=== PATIENT | male | born 1945 | race Caucasian/White ===

== ENCOUNTER 2020-10-08 14:19 | Inpatient (IN) | payer MEDICARE ==
[~2020-10-08] VITALS: Ht 182.8 cm; Wt 98.4 kg
[2020-10-08 07:30] VITALS: BP 138/80
[2020-10-08 14:57] LABS: BASO # 0.1 10*3/uL (0.0-0.1); BASO % 0.6 % (0.0-1.0); EOS % 0.2 % (1.0-4.0); HEMATOCRIT 36.2 % (42.0-52.0); LYMPH # 0.8 10*3/uL (1.3-4.4); LYMPH % 6.4 % (27.0-41.0); MEAN CELL VOLUME 78.7 fl (80.0-94.0); MEAN CORPUSCULAR HGB 21.7 pg (27.0-31.0); MEAN CORPUSCULAR HGB CONC 27.6 g/dl (33.0-37.0); MEAN PLATELET VOLUME 8.6 fl (9.6-12.3); MONO # 0.8 10*3/uL (0.1-1.0); NEUT # 10.1 10*3/uL (2.3-7.9); NEUT % 85.4 % (47.0-73.0); PLATELET COUNT AUTOMATED 548 10*3/uL (130-400); RED CELL DISTRI WIDTH 20.3 % (0-14.5); WHITE BLOOD COUNT 11.8 10*3/uL (4.8-10.8)
[2020-10-08 15:13] LABS: ACT PARTIAL THROMBO TIME 33.6 SECONDS (20.0-32.1); INTERNATIONAL NORM RATIO 1.3 (2.0-3.5)
[2020-10-08 15:18] VITALS: BP 143/85
[2020-10-08 15:22] LABS: BILIRUBIN Negative (Negative); BLOOD Negative (Negative); CLARITY Clear (Clear); COLOR Yellow (Yellow); GLUCOSE 3+ (Negative); KETONE Negative (Negative); LEUKO ESTERASE Negative (Negative); NITRITE Negative (Negative); SPECIFIC GRAVITY 1.015 (1.001-1.030)
[2020-10-08 15:31] LABS: ALBUMIN 3.4 gm/dl (3.1-4.5); ALKALINE PHOSPHATASE 171 U/L (45-117); BUN 16 mg/dl (7-24); CHLORIDE 108 mmol/L (98-107); CREATININE 0.81 mg/dL (0.70-1.30); LIPASE 249 U/L (73-393); POTASSIUM 4.3 mmol/L (3.5-5.1); SGOT/AST 12 IU/L (3-35); SGPT/ALT 23 U/L (12-78); SODIUM 142 mmol/L (136-145); TOTAL PROTEIN 7.2 gm/dL (6.4-8.2)
[2020-10-08 15:37] LABS: TROPONIN I < 0.015 ng/ml (<0.045)
[2020-10-08 15:49] LABS: YEAST TRACE
[2020-10-08 16:00] VITALS: BP 149/73
--- NOTE | 2020-10-08 16:09 | NUR ---
SCABS NOTED BILATERALLY TO UPPER EXTREMITIES AND LOWER LEFT EXTREMITY. NO OPEN WOUNDS. NO SEEPING. BILATERAL LOWER EDEMA ALSO NOTED AT THIS TIME. PT DENIES WOUNDS TO BUTTOCKS AREA.
[2020-10-08 17:48] LABS: ABG BASE EXCESS 1.1 mmol/L (-2.0-2.0); ARTERIAL BLOOD GAS PH 7.39 (7.35-7.45)
--- NOTE | 2020-10-08 17:55 | NUR ---
THIS RN CONTACTED DR GARCIA TO VERIFY THAT LASIX IS TO BE GIVEN. DR GARCIA VERIFIED THAT HE WOULD LIKE MEDICATION TO BE GIVEN. BP CURRENTLY 144/81.
[2020-10-08 18:36] VITALS: BP 148/85
[2020-10-08] MEDS ORDERED: AMLODIPINE BESY10 MG PO (18:42)
[2020-10-08] MEDS ORDERED: ELIQUIS5 M1 PO (18:42)
[2020-10-08] MEDS ORDERED: GLIPIZIDE10 M2 PO (18:43)
[2020-10-08] MEDS ORDERED: METFORMIN HYDR500 MG PO (18:43)
[2020-10-08] MEDS ORDERED: ATORVASTATIN CA20 M1 PO (18:45)
[2020-10-08] MEDS ORDERED: FUROSEMIDE20 M1 PO (18:45)
[2020-10-08] MEDS ORDERED: LOSARTAN POTAS100 M1 PO (18:46)
[2020-10-08] MEDS ORDERED: JARDIANCE25 MG PO (18:46)
[2020-10-08] MEDS ORDERED: ALLOPURINOL300 MG PO (18:47)
[2020-10-08] MEDS ORDERED: TRADJENTA5 M1 PO (18:47)
[2020-10-08] MEDS ORDERED: SALMON OIL 1,01 EACH PO (18:48)
[2020-10-08] MEDS ORDERED: OCUVITE EYE +1 EACH PO (18:48)
[2020-10-08] MEDS ORDERED: ASPIR-TRIN325 MG PO (18:48)
--- NOTE | 2020-10-08 18:50 | NUR ---
CONSULT WITH LEONARDA MONTES ANSWERING SERVICE COMPLETE AT THIS TIME. MED REC ALSO COMPLETE AT THIS TIME.
--- NOTE | 2020-10-08 19:30 | NUR ---
NURSE TO NURSE REPORT GIVEN TO THIS RN.PT ON BIPAP AT THIS TIME.HEPLOCK IN PLACE.
--- NOTE | 2020-10-08 19:30 | NUR ---
NURSE TO NURSE REPORT GIVEN TO THIS RN.PT ON BIPAP AT THIS TIME.
[2020-10-08 20:10] VITALS: BP 140/82
[2020-10-08 20:32] VITALS: BP 141/85
--- NOTE | 2020-10-08 20:32 | NUR ---
PT LINENS CHANGED.VITALS REASSESSED.PT REMAINS ON BIPAP.
--- NOTE | 2020-10-08 22:31 | NUR ---
PT PLACED IN INPATIENT BED.
[2020-10-09] VITALS (12 sets, daily range): BP systolic 11–165; BP diastolic 64–93
--- NOTE | 2020-10-09 00:08 | NUR ---
PT RESTING IN BED.VITALS REASSESSED.CALL BELLIS WITHIN REACH.
--- NOTE | 2020-10-09 04:03 | NUR ---
PT RESTING IN BED WITH EYES CLOSED.PT REMAINS ON BIPAP WITH O2 SAT 97%.
[2020-10-09 05:58] LABS: ALBUMIN 3.1 gm/dl (3.1-4.5); ALKALINE PHOSPHATASE 155 U/L (45-117); BUN 14 mg/dl (7-24); CHLORIDE 108 mmol/L (98-107); CHOLESTEROL 96 mg/dL (<200); CREATININE 0.62 mg/dL (0.70-1.30); HDL CHOLESTEROL 46 mg/dl (40-60); LDL CHOLESTEROL 38 mg/dL (9-159); POTASSIUM 3.9 mmol/L (3.5-5.1); SGOT/AST 14 IU/L (3-35); SGPT/ALT 19 U/L (12-78); SODIUM 144 mmol/L (136-145); TOTAL PROTEIN 6.5 gm/dL (6.4-8.2); TRIGLYCERIDES 58 mg/dl (<150); VLDL CHOLESTEROL 12 mg/dL (6-40)
[2020-10-09 06:12] LABS: BASO # 0.1 10*3/uL (0.0-0.1); BASO % 0.8 % (0.0-1.0); EOS # 0.1 10*3/uL (0.0-0.4); EOS % 0.7 % (1.0-4.0); HEMATOCRIT 35.3 % (42.0-52.0); LYMPH # 0.8 10*3/uL (1.3-4.4); LYMPH % 9.5 % (27.0-41.0); MEAN CELL VOLUME 76.4 fl (80.0-94.0); MEAN CORPUSCULAR HGB CONC 27.5 g/dl (33.0-37.0); MEAN PLATELET VOLUME 9.3 fl (9.6-12.3); MONO # 0.8 10*3/uL (0.1-1.0); MONO % 8.8 % (3.0-9.0); NEUT # 7.1 10*3/uL (2.3-7.9); NEUT % 79.9 % (47.0-73.0); PLATELET COUNT AUTOMATED 536 10*3/uL (130-400); RED BLOOD COUNT 4.62 10*6/uL (4.50-5.90); RED CELL DISTRI WIDTH 20.8 % (0-14.5); WHITE BLOOD COUNT 8.8 10*3/uL (4.8-10.8)
[2020-10-09 06:20] LABS: ACT PARTIAL THROMBO TIME 33.2 SECONDS (20.0-32.1); INTERNATIONAL NORM RATIO 1.3 (2.0-3.5)
[2020-10-09 09:25] LABS: VITAMIN D, 25-HYDROXY 22.7 ng/mL (30-100)
--- NOTE | 2020-10-09 09:46 | NUR ---
OT NOTE Occupational therapy order received and chart reviewed. Per discussion with primary RN in the ED, patient is not appropriate for an OT evaluation at this time and is currently on the Bipap. Will check back at a later time for completion of an OT eval as appropriate. Thank you. Marbella Birch, OTR/L
--- NOTE | 2020-10-09 09:46 | NUR ---
PHYSICAL THERAPY Physical therapy evaluation order recieved and chart reviewed. Attempted to see patient in ED however per nursing patient is not medically appropriate at this time for evaluation. Will attempt to see patient at a later time once medically appropriate. thanks Caridad Josue PT DPT
--- NOTE | 2020-10-09 12:37 | NUR ---
PATIENT BIPAP HAS BEEN TURNED DOWN TO 40%. ALECIA RESP HAS PLACED PATIENT ONTO NASAL CANNULA AT THIS TIME THOUGH AT 5L. PATIENT TOLERATING WELL. PATIENT ALSO REQUESTING LUNCH TRAY.
--- NOTE | 2020-10-09 19:29 | NUR ---
NURSE TO NURSE REPORT GIVEN TO THIS RN
--- NOTE | 2020-10-09 20:05 | NUR ---
PATIENT CLEANED UP AND BED SHEETS CHANGED AT THIS TIME. WILL CONT TO MONITOR PATIENT. NO DISTRESS NOTED. CALL LIGHT WITHIN REACH.
[2020-10-10] VITALS (9 sets, daily range): BP systolic 120–150; BP diastolic 60–87
--- NOTE | 2020-10-10 05:21 | NUR ---
PATIENT IN BED AWAKE AND ALERT PLEASANTLY CONFUSED. NO DISTRESS NOTED. VSS. CONT TECH BRAZER TESTER IN PLACE. RESP EASY AND NONLABORED. CALL LIGHT WITHIN REACH. RN WILL CONT TO MONITOR
[2020-10-10 05:44] LABS: BUN 17 mg/dl (7-24); CHLORIDE 106 mmol/L (98-107); CREATININE 0.72 mg/dL (0.70-1.30); POTASSIUM 4.2 mmol/L (3.5-5.1); SODIUM 142 mmol/L (136-145)
--- NOTE | 2020-10-10 08:29 | NUR ---
SLEEPING IN BED SEMI FOWLERS, EASILY AROUSED. GIVEN BREAKFAST TRAY. PLEASANTLY CONFUSED.
--- NOTE | 2020-10-10 09:07 | NUR ---
RICKS CATH EMPTIED FOR 1000 CC CLEAR YELLOW URINE.
--- NOTE | 2020-10-10 11:10 | NUR ---
SLEEPING SOUNDLY, RESPS EASY. POX 96%
--- NOTE | 2020-10-10 15:36 | NUR ---
DRANK APPROX 1/[address] PREP, REFUSING TO DRINK ANY MORE AT THIS TIME.
--- NOTE | 2020-10-10 21:06 | NUR ---
PT GIVEN RESTORIL FOR INSOMNIA/RESTLESSNESS. WILL MONITOR FOR EFFECTIVENESS. CALL LIGHT IN REACH.
--- NOTE | 2020-10-10 22:06 | NUR ---
RESTORIL EFFECTIVE. PT SLEEPING IN BED AT THIS TIME.
[2020-10-11] VITALS: BP 108/85; BP 138/76
--- NOTE | 2020-10-11 | NUR ---
PT AWAKE AND ALERT. REORIENTED TO PLACE AND TIME. PT HAS NO S/S OF DISTRESS. RESPIRATIONS UNLABORED. WILL CONTINUE TO MONITOR. SAFETY MEASURES IN PLACE. CALL LIGHT IN REACH.
--- NOTE | 2020-10-11 01:07 | NUR ---
PT C/O PAIN TO NECK. MORPHINE GIVEN VIA IVP. WILL MONITOR FOR EFFECTIVENESS. CALL LIGHT IN REACH.
--- NOTE | 2020-10-11 01:40 | NUR ---
PT TAKES BIPAP OFF AND REFUSES TO WEAR IT AT THIS TIME. PT PLACED ON 4L NC. WILL ATTEMPT TO PLACE PT ON BIPAP AT A LATER TIME.
--- NOTE | 2020-10-11 02:07 | NUR ---
PT STATES THAT MORPHINE IS EFFECTIVE AT THIS TIME.
--- NOTE | 2020-10-11 02:21 | NUR ---
DR OWEN NOTIFIED THAT PT IS RESTLESS/AGITATED AND REFUSING TO WEAR BIPAP. PHYSICIAN ALSO NOTIFIED OF NEW SKIN TEAR ON TOP OF LEFT HAND. NEW ORDERS RECEIVED.
--- NOTE | 2020-10-11 02:46 | NUR ---
PT GIVEN 0.5 MG IVP ATIVAN FOR RESTLESSNESS/AGITATION. WILL MONITOR FOR EFFECTIVENESS. CALL LIGHT IN REACH.
--- NOTE | 2020-10-11 03:15 | NUR ---
PT PLACED ON BIPAP AT THIS TIME.
[2020-10-11 06:51] LABS: BASO # 0.1 10*3/uL (0.0-0.1); BASO % 0.5 % (0.0-1.0); EOS # 0.1 10*3/uL (0.0-0.4); EOS % 1.2 % (1.0-4.0); HEMATOCRIT 34.5 % (42.0-52.0); LYMPH # 1.3 10*3/uL (1.3-4.4); LYMPH % 11.9 % (27.0-41.0); MEAN CELL VOLUME 76.5 fl (80.0-94.0); MEAN CORPUSCULAR HGB 21.7 pg (27.0-31.0); MEAN CORPUSCULAR HGB CONC 28.4 g/dl (33.0-37.0); MEAN PLATELET VOLUME 9.3 fl (9.6-12.3); MONO # 1.4 10*3/uL (0.1-1.0); MONO % 13.2 % (3.0-9.0); NEUT # 7.7 10*3/uL (2.3-7.9); NEUT % 72.9 % (47.0-73.0); PLATELET COUNT AUTOMATED 523 10*3/uL (130-400); RED BLOOD COUNT 4.51 10*6/uL (4.50-5.90); RED CELL DISTRI WIDTH 20.6 % (0-14.5); WHITE BLOOD COUNT 10.5 10*3/uL (4.8-10.8)
[2020-10-11 07:26] LABS: ALBUMIN 2.8 gm/dl (3.1-4.5); ALKALINE PHOSPHATASE 136 U/L (45-117); BUN 20 mg/dl (7-24); CHLORIDE 107 mmol/L (98-107); CREATININE 0.78 mg/dL (0.70-1.30); POTASSIUM 4.1 mmol/L (3.5-5.1); SGOT/AST 6 IU/L (3-35); SGPT/ALT 16 U/L (12-78); SODIUM 144 mmol/L (136-145); TOTAL PROTEIN 6.2 gm/dL (6.4-8.2)
[2020-10-11 08:00] VITALS: BP 131/67
[2020-10-11 08:15] LABS: ABG BASE EXCESS 6.8 mmol/L (-2.0-2.0); ARTERIAL BLOOD GAS PH 7.414 (7.35-7.45)
[2020-10-11 09:27] VITALS: BP 131/67
--- NOTE | 2020-10-11 09:58 | NUR ---
PT BECOME AGITATED AND COMBATIVE. TRYING TO CLIMB FROM BED. PT THREW WATER PITCHER AND MISC ITEMS FROM BEDSIDE STAND TO FLOOR. NOTIFIED DR ATKINSON AND ORDER RECIEVED.
--- NOTE | 2020-10-11 10:47 | NUR ---
PATIENTS NOTES REPORTS CONFUSION. TELEMARKETING FUNDRAISER LEFT MESSAGE FOR PATIENTS DAUGHTER JAJA ASKING FOR A RETURN CALL. CASE MANAGEMENT TO FOLLOW.
--- NOTE | 2020-10-11 10:50 | NUR ---
DR CANTRELL ROUNDED AND SEEN PT. PT BECAME AGGRESSIVE AND COMBATIVE. STATING "I'M LEAVING".DR CANTRELL ATTEMPTED TO REORIENT PT.PT DISORIENTED. ATIVAN 0.5 MG GIVEN AT THIS TIME. PT ASSISTED BACK INTO BED WITHOUT DIFFICULTY. PLACED ON BIPAP 14/10 @35% FIO2. PT RESTING COMFORTABLY AT THIS TIME.PT PLACED ON CONTINUOUS PULSE OX. SPO2 96% ON BIPAP. BED ALARM INTACT.CALL LIGHT IN REACH.
[2020-10-11 12:00] VITALS: BP 90/60
--- NOTE | 2020-10-11 12:30 | NUR ---
UPDATED DAUGHTER JAJA, ON PLAN OF CARE WELL BEHAVIORS NOTED. PER DAUGHTER PT HAS HAD TO LIVE WITH THEM FOR LAST 6-8 MTHS DUE TO CHANGES IN MENTAL STATUS. PT HAS REQUIRED 24 HOUR SUPERVISION AND REPORTED MEMORY LOSS WELL INCREASED CONFUSION. SUPERVISDION REQUIRED PER PHYSICIAN'S RECOMMENDATIONS.
--- NOTE | 2020-10-11 12:51 | NUR ---
TRANSFER CONTROLLER RECEIVED CALL BACK FROM PATIENTS MARQUITA WILKINSON. SHE WAS UNABLE TO VERFY PASSWORD. TRANSFER CONTROLLER SPOKE WITH HER AND ASKED HER BASIC QUESTIONS. PER DAUGHTER SUN PATIENT HAS BEEN RESIDING WITH HER FOR ABOUT 6 MONTHS. THERE IS 1 STEP IN THE HOME. PATIENT USES A WALKER, BUT DOES HAVE A WHEEL CHAIR. NO OXYGEN AT HOME. PATIENT USES [facility] IN [place] ALONG WITH [facility]. TRANSFER CONTROLLER SPOKE WITH HER ABOUT SNF/HH/OPR. SHE IS UNDECIDED AT THIS TIME. PATIENT IS CONFUSED. SHE STATED SHE WANTED TO SPEAK WITH PATIENTS RN. TRANSFER CONTROLLER TRANSFER CALL TO [facility]. TRANSFER CONTROLLER EXPLAINED TO [facility] NO PASSWORD GIVEN.
--- NOTE | 2020-10-11 14:51 | NUR ---
NOTIFIED FLORA PAGE OF [facility] CONSULT.
[2020-10-11 16:00] VITALS: BP 121/71
[2020-10-11 20:00] VITALS: BP 140/79
--- NOTE | 2020-10-11 22:55 | NUR ---
PATIENT AT THIS TIME TAKEN OFF BIPAP TO TAKE MEDICATION. PATIENT ALERT TO PERSON, NOT PLACE OR TIME. VERY PLEASANT AND COOPERATIVE. REQUESTED SOMETHING TO DRINK AND TO BE OFF THE BIPAP FOR A WHILE. PATIENT STATES HE'S TIRED AND IS READY TO GO BACK TO SLEEP. CALL LIGHT WITHIN REACH, WILL MONITOR
[2020-10-12] VITALS: BP 143/84
--- NOTE | 2020-10-12 01:53 | NUR ---
PATIENT AT THIS TIME REQUESTING GRAPE JUICE AND VANILLA ICE CREAM. PATIENT PLEASANT AND COOPERATIVE. STILL CONFUSED. CALL LIGHT WTIHIN KIKI, WILL MONITOR
--- NOTE | 2020-10-12 04:29 | NUR ---
24 HR chart check completed.
[2020-10-12 06:37] LABS: BASO # 0.1 10*3/uL (0.0-0.1); BASO % 0.6 % (0.0-1.0); EOS # 0.2 10*3/uL (0.0-0.4); EOS % 1.9 % (1.0-4.0); HEMATOCRIT 36.1 % (42.0-52.0); LYMPH # 0.9 10*3/uL (1.3-4.4); LYMPH % 7.8 % (27.0-41.0); MEAN CELL VOLUME 76.6 fl (80.0-94.0); MEAN CORPUSCULAR HGB 21.7 pg (27.0-31.0); MEAN CORPUSCULAR HGB CONC 28.3 g/dl (33.0-37.0); MONO % 9.1 % (3.0-9.0); NEUT % 80.3 % (47.0-73.0); PLATELET COUNT AUTOMATED 542 10*3/uL (130-400); RED BLOOD COUNT 4.71 10*6/uL (4.50-5.90); RED CELL DISTRI WIDTH 20.5 % (0-14.5); WHITE BLOOD COUNT 11.1 10*3/uL (4.8-10.8)
[2020-10-12 07:10] LABS: ALBUMIN 2.7 gm/dl (3.1-4.5); ALKALINE PHOSPHATASE 137 U/L (45-117); BUN 17 mg/dl (7-24); CHLORIDE 106 mmol/L (98-107); CREATININE 0.63 mg/dL (0.70-1.30); SGOT/AST 10 IU/L (3-35); SGPT/ALT 13 U/L (12-78); SODIUM 146 mmol/L (136-145); TOTAL PROTEIN 6.2 gm/dL (6.4-8.2)
[2020-10-12 08:00] VITALS: BP 128/77
--- NOTE | 2020-10-12 11:40 | NUR ---
PHYSICAL THERAPY PT eval ordered 10/08/20 but per chart review and nursing today patient has been agitated and combative and is not appropriate for PT eval today. Will attempt at later date. thank you for referral gerald moser PT
[2020-10-12 12:00] VITALS: BP 117/46
--- NOTE | 2020-10-12 13:55 | NUR ---
NOTIFIED DR PRADHAN OF 6 BEAT RUN OF [place]. NO NEW ORDERS. PT ASYMPTOMATIC.
--- NOTE | 2020-10-12 14:45 | NUR ---
FLORA PAGE ROUNDED AND SPOKE TO PT VIA [employer].
--- NOTE | 2020-10-12 15:00 | NUR ---
IV started left wrist with #22 angiocath after 1 attempts. The IV site was prepped with Chloraprep. Heparin lock attached. Sterile dressing applied. Patient tolerated precedure well. Procedure performed according to [facility] policy & procedure. VALERIA EISENBERG
[2020-10-12 16:00] VITALS: BP 120/63
[2020-10-12 20:00] VITALS: BP 118/64
--- NOTE | 2020-10-12 20:51 | NUR ---
ASSUMED CARE OF PATIENT. PATIENT IS RESTING IN BED WITH EASY AND REGULAR RESPERS. ASSESSMENT IS COMPLETE WITH NO S/S OF DISTRESS NOTED AT THIS TIME. PATIENT C/O THIRST, MARYCRUZ YANELI PROVIDED. BED IS LOW, LOCKED, ALARMED, AND CALL LIGHT IS WITHIN REACH. WHITEBOARD UPDATED. SEE INTERVENTIONS.
--- NOTE | 2020-10-12 23:00 | NUR ---
PATIENT INCONTINENT LARGE BM. BED BATH GIVEN AT THIS TIME AND BED LINENS CHANGED. BED IS LOW, LOCKED, ALARMED, AND CALL LIGHT IS WITHIN REACH.
[2020-10-13] VITALS: BP 119/61
--- NOTE | 2020-10-13 02:51 | NUR ---
REFUSING TO WEAR BIPAP AT THIS TIME. CALL LIGHT IS WITHIN REACH.
--- NOTE | 2020-10-13 04:36 | NUR ---
PATIENT REMOVED TOWER HAND AND CONTINUOUS PULSE OX. REFUSING TO PUT BACK ON. CALL LIGHT IS WITHIN REACH. SAUTE CHEF CONTACTED.
--- NOTE | 2020-10-13 05:06 | NUR ---
CHART CHECK COMPLETE.
--- NOTE | 2020-10-13 07:55 | NUR ---
PT HAD REFUSED PULSEOX AND MOTIVATIONAL SPEAKER FOR PREVIOUS SHIFT, AT THIS TIME PT AGREEABLE TO WEARING PULSEOX AND MOTIVATIONAL SPEAKER, MONITORS APPLIED. PT STATES NO NEEDS AT THIS TIME. OXYGEN NC ON AT 6 LITERS, NO DISTRESS NOTED AT THIS TIME.
[2020-10-13 08:00] VITALS: BP 150/70
--- NOTE | 2020-10-13 09:21 | NUR ---
PT TOOK DINKEY DRIVER OFF, REFUSE TO PUT BACK ON AT THIS TIME.
--- NOTE | 2020-10-13 09:28 | NUR ---
NOAH RECEIVED CALL FROM PATIENTS DAUGHTER JAJA, SHE DOES NOT KNOW THE PASSWORD, SHE DID VERFY /ADDRESS. SHE WANTED TO KNOW IF SHE COULD VISIT THIS PATIENT. NOAH EXPLAINED WOULD SPEAK WITH IP AUSTRALIAN RULES FOOTBALLER. SHE REQUESTED TO SPEAK WITH PATIENTS RN. NOAH TRANSFERRED CALL TO KESHA CHRISTOPHER. NOAH EXPLAINED NO PASSWORD WAS GIVEN.
--- NOTE | 2020-10-13 10:36 | NUR ---
5TH FLOOR INP TICKER MAINTAINER BYRON GAVE PERMISSION FOR PATIENTS DAUGHTER JAJA DANIELS TO VISIT THIS PATIENT. DINING CAR CONDUCTOR SPOKE WITH DAUGHTER SHE IS AWARE AND STATED SHE WILL BE IN TO SEE HIM. DINING CAR CONDUCTOR CONTACTED [employer] AUDITOR SECURITY, THEY WILL MAKE A NOTE.
--- NOTE | 2020-10-13 11:49 | NUR ---
case management visits patient, discussed with him being weak and possibly needing to go to a short term prison for 5 days of reah and 24 hour care prior to returning home, patient was agreeable but appeared to be somewhat confused, asked permission to speak with daughter, patient gave permission, per social media intern, patient's daughter will be visiting patient sometime today. will talk with her then
--- NOTE | 2020-10-13 11:54 | NUR ---
Occupational Therapy evaluation completed on five with full evaluation to follow. Recommend occupational therapy per plan of care and SNF upon discharge. Thank you for this referral. Marbella Birch OTR/L
--- NOTE | 2020-10-13 11:56 | NUR ---
PHYSICAL THERAPY Physical Therapy evaluation completed on 5E with full evaluation to follow. Moderate complexity skilled PT evaluation per chart review and evaluation, [address]. Recommend physical therapy per plan of care and SNF upon discharge. Thank you for this referral. Jasmin Dunlap,PT,DPT
[2020-10-13 12:00] VITALS: BP 150/75
--- NOTE | 2020-10-13 13:50 | NUR ---
PT CONTINUES TO REFUSE INSPECTOR TESTER SORTER.
--- NOTE | 2020-10-13 15:00 | NUR ---
Monitor removed and place in yellow bin at nurses station. Order to make pt unmonitored.
[2020-10-13 16:00] VITALS: BP 116/67
--- NOTE | 2020-10-13 18:04 | NUR ---
Pt pulled up in bed. States that left knee is hurting. Pt states he has had problems with this knee for a while and moving him caused him pain. Medicated with tylenol per prn order.
--- NOTE | 2020-10-13 19:56 | NUR ---
CHART CHECK COMPLETE.
[2020-10-13 20:00] VITALS: BP 136/68
--- NOTE | 2020-10-13 21:04 | NUR ---
ASSUMED CARE OF PATIENT. PATIENT IS RESTING IN BED WITH EASY AND REGULAR RESPERS. ASSESSMENT IS COMPLETE WITH NO S/S OF DISTRESS OR C/O NOTED AT THIS TIME. BED IS LOW, LOCKED, ALARMED, AND CALL LIGHT IS WITHIN REACH. SEE INTERVENTIONS.
[2020-10-14] VITALS: BP 134/81
--- NOTE | 2020-10-14 | NUR ---
PATIENT CLIMBED OUT OF BED MULTIPLE TIMES STATING "I NEED TO GET MY TRUCK, I AM GOING HOME." REORIENTED PATIENT. PATIENT NOT RECEPTIVE OF REORIENTATION. PATIENT ASSISTED BACK TO BED. BED IS LOW, LOCKED, ALARMED, AND CALL LIGHT IS WITHIN REACH. PATIENT WILL NOT KEEP DRESSING TO HAND INTACT.
--- NOTE | 2020-10-14 00:03 | NUR ---
PATIENT REFUSING BIPAP
--- NOTE | 2020-10-14 02:00 | NUR ---
PATIENT IS VERY CONFUSED, TRYING TO LEAVE. STAFF IN PATIENT ROOM MULTIPLE TIMES FOR BED ALARM. PATIENT REDIRECTED AND IT SEEMS EFFECTIVE. BED IS LOW, LOCKED, ALARMED, AND CALL LIGHT IS WITHIN REACH.
--- NOTE | 2020-10-14 03:21 | NUR ---
PATIENT VERY CONFUSED. STAFF HAS BEEN DEALING WITH HIM ALL NIGHT ATTEMPTING TO GET OUT OF BED TO "LEAVE" AND ATTEMPTING TO PULL RICKS OUT. PT STATES HE IS GOING TO HIS TRUCK. PT VERY UNSTEADY AND ALMOST FALLING WITH MULTIPLE STAFF MEMBERS ASSISTING HIM. PT DOES NOT FOLLOW COMMANDS. PT ASSISTED UP TO BSC TO HAVE BM. PATIENT ATTEMPTED TO WIPE AFTER BM WITH HIS HAND. PT THEN PROCEEDED TO TOUCH FACE WITH BM COVERED HAND. STAFF CURRENTLY IN ROOM ATTEMPTING TO GET HIM CLEANED UP AND PUT IN ANDREA CHAIR SO THAT PT DOES NOT HARM HIMSELF OR FALL. NOTIFIED OF SITUATION. WILL REVIEW CHART AND PLACE ORDERS NEEDED. TO REVIEW CHART AND PLACE ORDERS.
--- NOTE | 2020-10-14 03:33 | NUR ---
0333 1 MG IV ATIVAN GIVEN PER ONE TIME ORDER FOR INCREASED CONFUSION/AGITATION. 0342 PO TYLENOL GIVEN PER PRN ORDER FOR C/O L LEG PAIN. WILL MONITOR EFFECTIVENESS. CALL LIGHT IN REACH.
--- NOTE | 2020-10-14 03:45 | NUR ---
PATIENT IN ANDREA-CHAIR AT THIS TIME WITH TRAY TABLE ON EATING ICE CREAM AND BLAIRE CRACKERS. CALL LIGHT IS WITHIN REACH.
--- NOTE | 2020-10-14 04:32 | NUR ---
EARLIER ATIVAN INEFFECTIVE. PT REMAINS AWAKE IN ANDREA CHAIR. PT HAS THROWN COFFEE, WATER, AND BLAIRE CRACKERS ON GROUND. PT STILL PULLING AT ANDREA CHAIR TRAY AND RICKS CATHETER. STAFF HAS ATTEMPTED TO REORIENT/EDUCATE PT MULTIPLE TIMES, BUT UNSUCCESSFUL. WILL CONTINUE TO MONITOR. BODY ALARM INTACT. CALL LIGHT IN REACH.
--- NOTE | 2020-10-14 05:33 | NUR ---
PATIENT ASSISTED BACK TO BED AROUND 0520 WITH ASSIST FROM ANOTHER RN. WHILE ASSISTING PATIENT BACK TO BED PATIENT BECAME COMBATIVE AND ATTEMPTED TO HIT STAFF. PATIENT IS IN BED. BED IS LOW, LOCKED, ALARMED, AND CALL LIGHT IS WITHIN REACH. PATIENT IS SLEEPING AT THIS TIME, RESPERS EASY AND REGULAR ON 6L O2 VIA NC.
[2020-10-14 08:00] VITALS: BP 148/81
--- NOTE | 2020-10-14 08:31 | NUR ---
MOLDER FEEDER REACHED OUT TO PATIENT DAUGHTER JAJA. SHE STATED THAT SHE IS UNSURE OF WHAT THIS PATIENTS DISCHARGE PLAN LOOKS LIKE. SHE IS WEIGHING THE OPTIONS OF SNF VS HH VS OPR. MOLDER FEEDER EXPLAINED BIPAP/OXGYEN REQUIREMENTS. PATIENT DOES NOT USE OXYGEN AT HOME. HE IS CURRENTLY ON 5L. PATIENT/DAUGHTER IS FROM [facility]. MOLDER FEEDER EXPLAINED [facility] IS NON COVID. PATIENTS DAUGHTER STATED THIS MIGHT BE AN OPTION IF BEDS WERE AVAIABLE. MOLDER FEEDER WILL SEND REFERRAL TO HAVE [facility] LOOK AT REFERRAL FAMILY IS UNDECIDED. TABLET COATER IS AWARE.
--- NOTE | 2020-10-14 09:11 | NUR ---
REFUSE LABORER FAXED REFERRAL FOR REVIEW TO [facility]. FAMILY IS STILL UNDECIDED. REFUSE LABORER SPOKE WITH 5TH FLR CNC SERVICE ENGINEER BYRON, SHE OKAY FOR DAUGHTER TO VISIT AGAIN TO DAY. REFUSE LABORER WILL NOTIFY HER.
--- NOTE | 2020-10-14 10:51 | NUR ---
OT NOTE Pt was seen this A.M. 1:1 for 20 minute OT session. Upon arrival pt was supine in bed with daughter just arriving to room for a visit. Pt identified by name and and had complaints of generalized weakness. Pt presented to therapy with continuous 6L-O2 via NC which he remained on throughout the entire session. Pt transferred supine to sit EOB with Isabel for assist with upper body. While sitting EOB requested for pt to adjust B socks due to them falling off and pt was unable to complete requiring maxA to complete. Sit to stand completed from bed level with modA X 2 and use of w/w for UE support. Challenged pt's static standing tolerance needed for increased I in self care tasks and functional transfers. Pt was able to tolerate aprox 60 seconds at a time before sitting due to fatigue. Functional mobility was then completed from the EOB to the bedside commode (aprox 5 feet) with modA X 2 and use of w/w. Pt required constant/max verbal and tactile prompts for correcting his posture and slowing down due to being very impulsive and presenting with little to no safety awareness. While turning onto the bedside commode pt was sitting premature resulting in maxA x 2 to correct. After a seated rest break sit to stand completed from bedside commode with modA X 2 and use of w/w followed by functional mobility back to the EOB with modA X 2. Pt continued to be very impulsive and present with poor safety awareness. Pt then transferred back into bed sit to supine with SBA. There he was left with call light in hand, daughter still at bedside, bed rails up, and bed alarm activated for safety. Continue with rec D/C plan to SNF. JASON Jesus
--- NOTE | 2020-10-14 11:28 | NUR ---
[facility] IS ABLE TO ACCEPT THIS PATIENT. PEDIATRIC SPEECH THERAPIST SPOKE WITH PATIENTS DAUGHTER VIA PHONE. SHE IS AWARE OF THEY ABLE TO ACCEPT, HOWEVER, SHE/FAMILY IS STILL UNDECIDED OF A DISCHARGE PLAN AT THIS TIME.
--- NOTE | 2020-10-14 11:45 | NUR ---
PHYSICAL THERAPY Patient presented to therapy in supine in bed with head of bed elevated and bed alarm on with patient on 6 liters of spO2 via nasal canula. Patient reports no pain. Patient seems mildy confused. Patient's daughter is present in room with patient for therapy session. Patient's RN is Margaret. Patient has catheter. Patient has no IVs infusing at this time. Patient performed supine > sitting on EOB with SBA. Patient required verbal cues for technique. Patient sat on EOB with SBA. Patient performed STS from EOB with MIN A X 2 and verbal cues for hand placement and technique. Patient ambulated across room to low chair with Wh Walker and CGA for 10' x 1 with 1 minor LOB that the patient corrected himself. Patient sat in low chair with verbal cues for putting hands back on armrests of chair and with CGA. Patient STS out of low chair with MOD A X 2. Patient ambulated 10' x 1 with Wh Walker and CGA to sitting on EOB with 2 minor LOB to the rear that the patient corrected himself. Patient performed 5 Xs STS from sitting on EOB in 34 SECONDS with MIN A X 1 each STS from EOB. Patient used UEs to assist with STSs from EOB. Patient completed sitting on EOB > supine in bed SBA. Patient was left in supine in bed with head of bed elevated and bed alarm on. Patient's daughter in room visiting with patient. Patient's call light within reach. Patient was 1:1 with this HUMAN FACTORS SCIENTIST for 22 minutes total. SHERRIE BOYKIN HUMAN FACTORS SCIENTIST
[2020-10-14 12:00] VITALS: BP 135/81
--- NOTE | 2020-10-14 13:03 | NUR ---
ESTHETICIAN MAKEUP ARTIST RECEIVED CALL FROM PATIENTS DAUGHTER STATING SHE IS STILL TRYING TO REACH HER SISTER. PT DAUGHTER ASKED QUESTIONS ABOUT [facility]. ESTHETICIAN MAKEUP ARTIST ANSWERED THEM. ESTHETICIAN MAKEUP ARTIST EXPLAINED THIS ESTHETICIAN MAKEUP ARTIST WOULD HAVE THE LIAISON LISET REACH OUT TO HER. PT DAUGHTER WAS AGREEABLE. ESTHETICIAN MAKEUP ARTIST NOTIFIED LISET OF NEEDING TO REACH OUT TO THE PATIENTS DAUGHTER. SHE STATED SHE WOULD.
--- NOTE | 2020-10-14 15:14 | NUR ---
PRINTED CIRCUIT BOARD DESIGNER RECEIVED CALL FROM [facility]. SHE STATED SHE SPOKE WITH PTS DAUGHTER JAJA. PER LISET WILKINSON IS STILL SPEAKING WITH FAMILY ABOUT DISCHARGE PLANS.
--- NOTE | 2020-10-14 15:30 | NUR ---
DISCONTINUED RICKS PER DR. BROOKS
--- NOTE | 2020-10-14 15:34 | NUR ---
NOAH RECEIVED CALL FROM PATIENTS DAUGHTER JAJA SHE IS AGREEABLE TO PLACEMENT AT [facility]. NOAH SPOKE WITH LISET THEY CAN ADMIT THE PATIENT TOMORROW 10/15/2020. NOAH ALSO SPOKE WITH RN CADY FELIPE. SHE STATED THIS PATIENTS DAUGHTER COULD COME IN TO SEE THE PATIENT UP UNTIL 9:30PM THIS EVENING.
[2020-10-14 16:22] VITALS: BP 153/75
--- NOTE | 2020-10-14 19:10 | NUR ---
REPORT RECEIVED. PT LYING IN BED. NO COMPLAINTS. CALL LIGHT IN REACH
[2020-10-14 20:00] VITALS: BP 132/74
--- NOTE | 2020-10-14 21:00 | NUR ---
PT SLEEPING AT THIS TIME. AWAKENS EASILY FOR MED PASS. NO COMPLAINTS.
--- NOTE | 2020-10-14 23:00 | NUR ---
PT SLEEPING AT THIS TIME
[2020-10-15] VITALS: BP 143/76
--- NOTE | 2020-10-15 00:44 | NUR ---
PT AWAKE AT THIS TIME WANTING TO LEAVE. EDUCATED ON TIME, PLACE AND SITUATION. ASSISTED BACK TO BED.
--- NOTE | 2020-10-15 01:15 | NUR ---
PT TREASURY REPRESENTATIVE LIGHT WANTING TO LEAVE. REORIENTED.
--- NOTE | 2020-10-15 01:43 | NUR ---
24 HR chart check completed.
--- NOTE | 2020-10-15 02:00 | NUR ---
PT CLINICAL RESOURCE COORDINATOR LIGHT AT THIS TIME. PT WANTING TO GO HOME. REORIENTED.
--- NOTE | 2020-10-15 02:54 | NUR ---
PT INORGANIC CHEMISTRY PROFESSOR LIGHT, PT READY TO GO HOME. PT EDUCATED AND REORIENTED.
--- NOTE | 2020-10-15 03:04 | NUR ---
DR. OWEN NOTIFIED OF PT WANTING TO GO HOME, GETTING OUT OF BED. ORDERD TO KEP EYE ON PT. IF PT BECOMES AGITATED/WORSE TO NOTIFY HIM
--- NOTE | 2020-10-15 03:38 | NUR ---
PT BED ALARMING AT THIS TIME. UPON ENTRY, PT STATES "IM GOING HOME" PT REORIENTED AND ASSISTED BACK TO BED
[2020-10-15 08:00] VITALS: BP 146/74
--- NOTE | 2020-10-15 08:03 | NUR ---
OT NOTE Attempted to see pt this A.M. for OT session and upon arrival pt was supine in bed. Pt reports that he did not sleep well and was wanting to rest, to check back this afternoon. Will check back at a later time and continue with POC as able. JASON Jesus
--- NOTE | 2020-10-15 08:07 | NUR ---
PHYSICAL THERAPY Patient was approached for his PT session this morning ,but he declined because he wanted to continue sleeping awhile longer. Will check back later in the morning with the patient. SHERRIE BOYKIN PICTURE COPYIST
--- NOTE | 2020-10-15 08:13 | NUR ---
VENDOR MANAGEMENT CONSULTANT CONTACTED PATIENTS DAUGHTER JAJA. SHE CONFIRMED THE [facility] FOR THE PATIENT TO GO TO [place]. VENDOR MANAGEMENT CONSULTANT NOTIFIED RN HOSPITALIST COORDINATOR NIDIA. VENDOR MANAGEMENT CONSULTANT COMPLETED HENS. VENDOR MANAGEMENT CONSULTANT FAXED UPDATES TO [facility]. WILL ARRANGE TRANSPORTATION ONCE DISCHARGE IS ORDERED.
[2020-10-15 12:00] VITALS: BP 131/67
[2020-10-15] MEDS ORDERED: ALDACTONE25 MG PO (14:01)
[2020-10-15] MEDS ORDERED: OLANZAPINE5 MG PO (14:01)
[2020-10-15] MEDS ORDERED: RIVASTIGMINE1 EAC1 T (14:01)
[2020-10-15] MEDS ORDERED: VITAMIN D350 MC2 PO (14:01)
[2020-10-15] MEDS ORDERED: FUROSEMIDE40 MG PO (14:01)
[2020-10-15] MEDS ORDERED: MEMANTINE HCL10 MG PO (14:01)
[2020-10-15] MEDS ORDERED: METOPROLOL SUCC25 M2 PO (14:01)
[2020-10-15] MEDS ORDERED: NAMENDA-5 PO (14:01)
--- NOTE | 2020-10-15 14:11 | NUR ---
SIGNALLING AND COMMUNICATIONS ENGINEER RECEIVED NOTICE OF PATIENT DISCHARGE. SIGNALLING AND COMMUNICATIONS ENGINEER SPOKE WITH KESHA CHRISTOPHER WHO SPOKE WITH RN. SIGNALLING AND COMMUNICATIONS ENGINEER ARRANGED FOR A 5PM TRANSPORT VIA [facility]. SIGNALLING AND COMMUNICATIONS ENGINEER NOTIFIED WC OF TRANSPORT TIME, [facility], AND PATIENTS DAUGHTER JAJA. SIGNALLING AND COMMUNICATIONS ENGINEER TO FAX DISCHARGE ORDERS TO [facility] WHEN ABLE.
--- NOTE | 2020-10-15 14:42 | NUR ---
Nutritional Support Services Note: Pt is eating 100% of meals. Regular diet as ordered. Skin tear noted. Continue to encourage good intake of meals. Will follow if needed. Prema Montoya Rdn Ld
--- NOTE | 2020-10-15 14:45 | NUR ---
OT NOTE Pt was seen this P.M. 1:1 for 15 minute OT session. Upon arrival pt was supine in bed. Pt identified by name and and had no complaints at this time. Pt presented to therapy with continuous 3L-O2 via NC which he remained on throughout the entire session. Pt transferred supine to sit EOB with SBA. While sitting EOB pt adjusted B socks due to being half way off with CGA for safety. Multiple sit to stand transfers were completed from bed level with CGA and use of w/w for UE support. Challenged pt's static standing tolerance needed for increased I in self care tasks and functional transfers. Pt was able to tolerate aprox 45-60 seconds at a time before sitting due to fatigue. Functional mobility completed to the bathroom with CGA and use of w/w where he transferred on to standard commode with Isabel due to poor safety with turn and sitting premature. Pt was educated on importance of turning safety and feeling the surface on the back of his legs before sitting. Pt voiced understanding however presented with poor carry over. Clothing management completed with maxA for doffing depends due to being soiled and donning new. Functional mobility completed back to the EOB with CGA and use of w/w. During turn pt again required Isabel due to poor safety awareness. Pt transferred back into bed sit to supine with SBA. There he was left with call light in hand, tray table in place, and bed alarm activated for safety. Continue with rec D/C plan to SNF. JASON Jesus
--- NOTE | 2020-10-15 14:48 | NUR ---
PHYSICAL THERAPY Patient presented to therapy in supine in bed with head of bed elevated and and bed alarm on. Patient gives informed consent for treatment. Patient was identified by name and on wristband. Patient is on 3 liters of spO2 via nasal canula. Patient performed supine > sitting on EOB with SBA. Patient sat on EOB with SBA. Patient completed STS from EOB with CGA. Patient ambulated with Wh Walker and CGA for 10' x 2 < > low chair with mild LOB that the patient corrects himself. Patient STS out of low chair with SBA. Patient sat on EOB and performed LAQs, marches and heel/toe raises x 15 reps each for strengthening the LEs. Patient completed sitting on EOB > supine in bed with SBA. Patient was able to scoot himself up into bed with SBA. Patient was left in supine in bed with head of bed elevated and bed alarm on with tray table near patient. Call light left within reach of patient. Patient was 1:1 with this [employer] for 20 minutes total. SHERRIE BOYKIN [employer]
--- NOTE | 2020-10-15 15:59 | NUR ---
OCCUPATIONAL THERAPY CO-SIGN I approve of the Occupational Therapy notes written above. Marbella Birch, OTR/L
[2020-10-15 16:00] VITALS: BP 114/67
--- NOTE | 2020-10-15 16:03 | NUR ---
PHYSICAL THERAPY CO-SIGN I approve of the Physical Therapy notes written above. LISSET PEREZ PT, DPT
--- NOTE | 2020-10-15 17:00 | NUR ---
Discharge instructions reviewed with patient/family. Patient receptive and verbalizes understanding. Follow-up care arranged. Written instructions given to patient/family. VALERIA EISENBERG
--- NOTE | 2020-10-15 17:00 | NUR ---
Discharge instructions reviewed with patient/family. Patient receptive and verbalizes understanding. Follow-up care arranged. Written instructions given to patient/family. SCOTTY GUTIERREZ
--- NOTE | 2020-10-16 07:39 | NUR ---
NOAH RECEIVED MESSAGE FROM LANIE REQUESTING COPY OF THIS PATIENTS MEDICARE NUMBER. NOAH EXPLAINED WE ONLY HAVE THE PFS ELIGIBILITY INFO. LISET REQUESTED THIS BE FAXED TO HER. NOAH FAXED THIS INFORMATION TO HER.
== END 2020-10-15 17:00 | disposition other institution (70) | DRG 291 ==
LOC: ED 14:19 → 5E 16:09 → EDHOLD 16:09 → 5E 10-10 17:28
PROVIDERS: Emergency Medicine; Internal Medicine; Internal Medicine Critical Care Medicine; Social Worker Clinical; Student in an Organized Health Care Education/Training Program; ADMIT Student in an Organized Health Care Education/Training Program; ATTEND Student in an Organized Health Care Education/Training Program
PROC: 5A09357 Assistance with Respiratory Ventilation, Less than 24 Consecutive Hours, Continuous Positive Airway Pressure (ICD-10-PCS; principal; 2020-10-08)
PROC: 5A09357 Assistance with Respiratory Ventilation, Less than 24 Consecutive Hours, Continuous Positive Airway Pressure (ICD-10-PCS; 2020-10-09)
PROC: 5A09357 Assistance with Respiratory Ventilation, Less than 24 Consecutive Hours, Continuous Positive Airway Pressure (ICD-10-PCS; 2020-10-10)
PROC: 5A09457 Assistance with Respiratory Ventilation, 24-96 Consecutive Hours, Continuous Positive Airway Pressure (ICD-10-PCS; 2020-10-11)
DX: I11.0 Hypertensive heart disease with heart failure (principal); J96.01 Acute respiratory failure with hypoxia; J18.9 Pneumonia, unspecified organism; G93.41 Metabolic encephalopathy; J98.11 Atelectasis; I48.92 Unspecified atrial flutter; I48.21 Permanent atrial fibrillation; I50.23 Acute on chronic systolic (congestive) heart failure; E11.65 Type 2 diabetes mellitus with hyperglycemia; E87.8 Other disorders of electrolyte and fluid balance, not elsewhere classified; E83.41 Hypermagnesemia; E66.9 Obesity, unspecified; D50.9 Iron deficiency anemia, unspecified; R41.0 Disorientation, unspecified; E78.00 Pure hypercholesterolemia, unspecified; F03.90 Unspecified dementia, unspecified severity, without behavioral disturbance, psychotic disturbance, mood disturbance, and anxiety; Z20.822 Contact with and (suspected) exposure to COVID-19; D47.3 Essential (hemorrhagic) thrombocythemia; M1A.9XX0 Chronic gout, unspecified, without tophus (tophi); E78.5 Hyperlipidemia, unspecified; Z95.1 Presence of aortocoronary bypass graft; Z79.01 Long term (current) use of anticoagulants; Z79.82 Long term (current) use of aspirin; Z79.84 Long term (current) use of oral hypoglycemic drugs; Z68.29 Body mass index [BMI] 29.0-29.9, adult